=== PATIENT | male | born 1980 | race Caucasian/White ===

== ENCOUNTER 2018-12-09 04:25 | Emergency (ER) | payer OTHER ==
[~2018-12-09] VITALS: Ht 172.7 cm; Wt 136.5 kg
[~2018-12-09 04:25] MED LIST: BENA40TA54 PO; CARV3.12 PO; CLON0.3T PO; FURO20TA3 PO; GEMF600T PO; HYDR-3672 PO; IBUP-1542 PO; SPIR25TA PO
[2018-12-09 04:42] VITALS: BP 151/82; PULSE 76; RESP 16; Ht 172.7 cm; Wt 136.5 kg
[2018-12-09] MEDS ORDERED: DIPHENHYDRAMINE 25 MG CAP PO ONE (05:30)
[2018-12-09] MEDS ORDERED: LORAZEPAM 1 MG TAB PO ONE (05:30)
== END 2018-12-09 06:32 | disposition home or self-care (01) ==
LOC: FTE 04:25
DX: F41.1 Generalized anxiety disorder (principal); I11.0 Hypertensive heart disease with heart failure; I50.9 Heart failure, unspecified
CPT/HCPCS: 82962; 93005; Z7610